=== PATIENT | male | born 1955 | race Caucasian/White ===

== ENCOUNTER 2024-04-24 03:33 | Inpatient (IN) ==
[2024-04-24 04:53] LABS: ABS Lymphocytes 0.5 10^3/uL (1.0-4.8); ABS Monocytes 0.9 10^3/uL (0.0-1.1); ABS Neutrophils 18.3 10^3/uL (1.5-7.6); ABS Nucleated RBC 0.06 10^3/ul; Eosinophil % 0.1 %; Hematocrit 49.9 % (38-53); Hemoglobin 16.8 g/dL (13.2-16.3); Lymphocyte % 2.6 %; Mean Corpuscular Hemoglobin 27.9 pg (27-33); Mean Corpuscular Hgb Conc 33.6 g/dL (31-36); Mean Corpuscular Volume 83.2 fL (80-97); Mean Platelet Volume 8.3 fL (7.5-11.2); Nucleated Red Blood Cells % 0.3 %/100WBC (0.0-0.8); Platelet Count 538 10^3/uL (150-450); Red Cell Distribution Width 18.7 % (12-17); White Blood Count 19.8 10^3/uL (3.6-10.2)
[2024-04-24 05:09] LABS: ALT 31 U/L (7-52); AST 35 U/L (13-39); Albumin 4.9 g/dL (3.2-5.2); Albumin/Globulin Ratio 1.6 (1-3); Alcohol, S < 13 mg/dL (<13); Alkaline Phosphatase 135 U/L (35-149); Anion Gap 10 mmol/L (2-16); Blood Urea Nitrogen 23 mg/dL (6-24); CO2 Carbon Dioxide 24 mmol/L (22-32); Chloride 94 mmol/L (101-111); Creatinine, Serum 1.45 mg/dL (0.67-1.17); Globulin 3.1 g/dL (2-4); Glucose 127 mg/dL (70-100); Magnesium 2.9 mg/dL (1.9-2.7); Potassium 5.3 mmol/L (3.5-5.0); Sodium 128 mmol/L (135-145); Total Bilirubin 0.8 mg/dL (0.2-1.0); eGFR CKD-EPI 53.1 (>60)
[2024-04-24 05:16] LABS: High Sens Troponin Baseline 7 pg/mL (<20)
[2024-04-24 05:24] LABS: TSH Ultra Thyroid Stim Horm 1.61 mcIU/mL (0.34-5.60)
[2024-04-24] MEDS: Cefepime 2 GM in Dextrose 2 GM/50 ML BAG IV ONE (05:31)
[2024-04-24] MEDS ORDERED: LORazepam 2 mg VIAL 1 ml ONE (05:56)
[2024-04-24 06:11] LABS: High Sensitivity Troponin 1 Hr 6 pg/mL (<20)
[2024-04-24] MEDS: LORazepam 2 mg VIAL 1 ml IV PUSH SCH (06:15)
[2024-04-24] MEDS: Thiamine 100 MG/ML 2 ml VIAL (200 mg) IV ONE (06:44)
[2024-04-24 07:17] LABS: Urine Appearance Clear; Urine Bilirubin Negative (Negative); Urine Blood Negative (Negative); Urine Color Yellow; Urine Glucose Negative (Negative); Urine Ketones 2+ (Negative); Urine Nitrite Negative (Negative); Urine Protein 1+ (>=30 mg/dL) (Negative); Urine Specific Gravity 1.028 (1.002-1.030); Urine Urobilinogen Negative (Negative); Urine pH 5.5 (5.0-8.0)
[2024-04-24 07:21] LABS: Urine Bacteria Absent /HPF (Absent); Urine Red Blood Cell Absent /HPF (0-Trace); Urine White Blood Cell Trace(0-5/hpf) /HPF (0-Trace)
[2024-04-24] MEDS: diazePAM INJ CARPUJECT 5 MG/ML SYRINGE IV ONE ×2 (07:22→21:12)
[2024-04-24] MEDS: Lactated Ringers 1000 ml BAG 1,000 ML IV ONE (08:24)
[2024-04-24] MEDS: Iodixanol 320 (CONTRAST) 100 ML SDV IV ONE (08:27)
[2024-04-24] MEDS: Morphine 4 MG/ML VIAL (1 ml) IV ONE (09:35)
[2024-04-24 11:56] LABS: C Reactive Protein 17.48 mg/L (<8.01)
[2024-04-24] MEDS: Venlafaxine XR 75 mg PO SCH (12:44)
[2024-04-24] MEDS: NS 0.9% 1000 ml BAG 1,000 ML IV SCH ×2 (12:45→17:25)
[2024-04-24 13:50] LABS: Urine Benzodiazepine Screen Presumptive Positive (None Detect); Urine Cannabinoids Screen Presumptive Positive (None Detect); Urine Opiates Screen Presumptive Positive (None Detect)
[2024-04-24] MEDS ORDERED: Amphetamine MIXED SALT 10mgTAB PO SCH (14:00)
[2024-04-24] MEDS ORDERED: Lorazepam PYXIS KEY PRN (16:22)
[2024-04-24] MEDS: LORazepam 2 mg VIAL 1 ml IV PUSH PRN (16:41)
[2024-04-24] MEDS: Enoxaparin 40 MG/0.4 ML SYR SUBCUT SCH (22:10)
[2024-04-24 23:21] LABS: PCO2 Arterial 35 mmHg (35-45); PO2 Arterial 83 mmHg (80-100)
[2024-04-25] MEDS: Lactated Ringers 1000 ml BAG 1,000 ML IV ONE ×2 (01:07→01:35)
[2024-04-25] MEDS: LORazepam 2 mg VIAL 1 ml IV PUSH PRN (04:53)
[2024-04-25 05:03] LABS: ABS Lymphocytes 0.6 10^3/uL (1.0-4.8); ABS Monocytes 1.2 10^3/uL (0.0-1.1); ABS Neutrophils 12.7 10^3/uL (1.5-7.6); Hematocrit 37.2 % (38-53); Hemoglobin 12.4 g/dL (13.2-16.3); Lymphocyte % 3.9 %; Mean Corpuscular Hemoglobin 27.9 pg (27-33); Mean Corpuscular Hgb Conc 33.2 g/dL (31-36); Mean Platelet Volume 8.2 fL (7.5-11.2); Platelet Count 346 10^3/uL (150-450); Red Blood Count 4.43 10^6/uL (4.06-5.63); White Blood Count 14.5 10^3/uL (3.6-10.2)
[2024-04-25 05:41] LABS: Anion Gap 6 mmol/L (2-16); Blood Urea Nitrogen 28 mg/dL (6-24); CO2 Carbon Dioxide 20 mmol/L (22-32); Calcium 8.2 mg/dL (8.6-10.3); Chloride 108 mmol/L (101-111); Creatinine, Serum 1.34 mg/dL (0.67-1.17); Glucose 110 mg/dL (70-100); Potassium 5.7 mmol/L (3.5-5.0); Sodium 134 mmol/L (135-145); eGFR CKD-EPI 58.4 (>60)
[2024-04-25] MEDS: Venlafaxine XR 75 mg PO SCH (08:53)
[2024-04-25] MEDS: SODIUM ZIRCONIUM CYCLOSILICATE 10 GM PACKET PO ONE (10:39)
[2024-04-25 12:58] LABS: TSH Ultra Thyroid Stim Horm 3.71 mcIU/mL (0.34-5.60)
[2024-04-25 13:09] LABS: Folate 7.45 ng/mL (5.90-24.80)
[2024-04-25 13:10] LABS: Vitamin B12 188 pg/mL (180-914)
[2024-04-25 13:13] LABS: Vitamin D Total 25(OH) < 7.0 ng/mL (20-50)
[2024-04-25] MEDS: Acetaminophen IV 1 GM/100ML 1,000 MG/100 ML BAG IV PRN (13:54)
[2024-04-25 14:29] LABS: Urine Appearance Extra Turbid; Urine Bilirubin Negative (Negative); Urine Blood 3+ (Negative); Urine Glucose Negative (Negative); Urine Ketones 2+ (Negative); Urine Nitrite Negative (Negative); Urine Protein 1+ (>=30 mg/dL) (Negative); Urine Specific Gravity 1.033 (1.002-1.030); Urine Urobilinogen Negative (Negative)
[2024-04-25 14:36] LABS: Urine Bacteria Absent /HPF (Absent); Urine Red Blood Cell 3+(>10/hpf) /HPF (0-Trace); Urine White Blood Cell Absent /HPF (0-Trace)
[2024-04-25] MEDS: Multivitamins/Minerals TAB PO SCH (14:41)
[2024-04-25 15:49] LABS: Urine Color Yellow
[2024-04-25] MEDS ORDERED: Diazepam IV 0-15 mg dose for WAM protocol IV SCH (18:00)
[2024-04-25] MEDS: diazePAM INJ CARPUJECT 5 MG/ML SYRINGE IV SCH (19:29)
[2024-04-25] MEDS: fentaNYL 100 mcg/2 ml 50 MCG/ML VIAL IV SLOW PU PRN (22:15)
[2024-04-26 02:34] LABS: Hematocrit 37.6 % (38-53); Hemoglobin 12.5 g/dL (13.2-16.3); Mean Corpuscular Hgb Conc 33.2 g/dL (31-36); Mean Corpuscular Volume 84.5 fL (80-97); Mean Platelet Volume 8.6 fL (7.5-11.2); Platelet Count 331 10^3/uL (150-450); Red Blood Count 4.45 10^6/uL (4.06-5.63); Red Cell Distribution Width 19.1 % (12-17); White Blood Count 16.2 10^3/uL (3.6-10.2)
[2024-04-26 02:46] LABS: ABS Basophils 0.1 10^3/uL (0.0-0.1); ABS Eosinophils 0.3 10^3/uL (0.0-0.5); ABS Lymphocytes 1.9 10^3/uL (1.0-4.8); ABS Monocytes 1.9 10^3/uL (0.0-1.1); ABS Neutrophils 12.1 10^3/uL (1.5-7.6); ABS Nucleated RBC 0.01 10^3/ul; Eosinophil % 1.7 %; Lymphocyte % 11.7 %; Nucleated Red Blood Cells % 0.1 %/100WBC (0.0-0.8)
[2024-04-26 03:11] LABS: Calcium 8.1 mg/dL (8.6-10.3); Creatinine, Serum 1.04 mg/dL (0.67-1.17); Magnesium 2.2 mg/dL (1.9-2.7); Phosphorus 2.8 mg/dL (2.5-5.0); Potassium 4.7 mmol/L (3.5-5.0); eGFR CKD-EPI 79.2 (>60)
[2024-04-26] MEDS: HYDROmorphone 1 MG/1 ML SYRINGE IV SLOW PU PRN (10:05)
[2024-04-27] MEDS: Ondansetron 4 mg VIAL 2 MG/ML 2 ml VIAL IV PRN (06:07)
[2024-04-27 06:36] LABS: Hematocrit 41.5 % (38-53); Hemoglobin 13.6 g/dL (13.2-16.3); Mean Corpuscular Hemoglobin 27.5 pg (27-33); Mean Corpuscular Hgb Conc 32.8 g/dL (31-36); Mean Corpuscular Volume 83.9 fL (80-97); Mean Platelet Volume 8.7 fL (7.5-11.2); Platelet Count 366 10^3/uL (150-450); Red Blood Count 4.95 10^6/uL (4.06-5.63); Red Cell Distribution Width 19.3 % (12-17); White Blood Count 12.2 10^3/uL (3.6-10.2)
[2024-04-27 06:56] LABS: Calcium 8.4 mg/dL (8.6-10.3); Creatinine, Serum 0.96 mg/dL (0.67-1.17); Magnesium 1.9 mg/dL (1.9-2.7); Phosphorus 2.7 mg/dL (2.5-5.0); Potassium 4.8 mmol/L (3.5-5.0); eGFR CKD-EPI 87.2 (>60)
[2024-04-27 07:31] LABS: ABS Basophils 0.1 10^3/uL (0.0-0.1); ABS Eosinophils 0.1 10^3/uL (0.0-0.5); ABS Monocytes 1.2 10^3/uL (0.0-1.1); ABS Neutrophils 9.8 10^3/uL (1.5-7.6); ABS Nucleated RBC 0.01 10^3/ul; Eosinophil % 0.9 %; Lymphocyte % 8.2 %; Nucleated Red Blood Cells % 0.1 %/100WBC (0.0-0.8)
[2024-04-27] MEDS: Magnesium Sulfate IV 1GM/100ML 1 GM/100 ML BAG IV ONE (08:41)
[2024-04-28 06:10] LABS: Hematocrit 47.1 % (38-53); Hemoglobin 15.9 g/dL (13.2-16.3); Mean Corpuscular Hemoglobin 28.4 pg (27-33); Mean Corpuscular Hgb Conc 33.8 g/dL (31-36); Mean Corpuscular Volume 83.9 fL (80-97); Mean Platelet Volume 8.5 fL (7.5-11.2); Platelet Count 385 10^3/uL (150-450); Red Blood Count 5.62 10^6/uL (4.06-5.63); Red Cell Distribution Width 18.6 % (12-17); White Blood Count 12.5 10^3/uL (3.6-10.2)
[2024-04-28 06:33] LABS: Creatinine, Serum 0.99 mg/dL (0.67-1.17); Phosphorus 3.7 mg/dL (2.5-5.0)
[2024-04-28 07:13] LABS: ABS Basophils 0.1 10^3/uL (0.0-0.1); ABS Eosinophils 0.1 10^3/uL (0.0-0.5); ABS Lymphocytes 1.8 10^3/uL (1.0-4.8); ABS Monocytes 1.4 10^3/uL (0.0-1.1); ABS Neutrophils 9.1 10^3/uL (1.5-7.6); ABS Nucleated RBC 0.05 10^3/ul; Eosinophil % 1.2 %; Lymphocyte % 14.1 %; Nucleated Red Blood Cells % 0.4 %/100WBC (0.0-0.8)
[2024-04-28] MEDS: Morphine 2 MG/ML SYRINGE IV PRN (13:59)
[2024-04-28] MEDS: Gadoteridol (CONTRAST) 279.3 MG/ML 10 ML IV ONE (21:58)
[2024-04-29 01:53] VITALS: BP 173/99
== END 2024-04-29 04:30 | disposition short-term general hospital (02) | DRG 775 ==
LOC: ED 03:33 → EDHOLD 11:14 → MED 14:30 → ICU 20:42 → MEDTELE 04-26 15:00
PROVIDERS: ADMIT Hospitalist; ATTEND Hospitalist